=== PATIENT | female | born 1945 | race Caucasian/White ===

== ENCOUNTER 2017-04-02 09:47 | Emergency (ER) | payer OTHER ==
[~2017-04-02] VITALS: Ht 147.3 cm; Wt 79.0 kg
[2017-04-02 09:49] VITALS: BP 157/73; PULSE 80; RESP 20; TEMP 97.4; O2SAT 97
[2017-04-02] MEDS ORDERED: LANTUS2P SQ (10:00)
[2017-04-02] MEDS ORDERED: NOVOLOGP2 SQ (10:00)
--- NOTE | 2017-04-02 10:22 | PD ---
HPI Chief Complaint: Fall Time Seen by Provider: 10:07 Travel History International Travel<30 days: No Contact w/Intl Traveler<30days: No Traveled to known affect area: No History of Present Illness HPI 72-year-old female complains of headache, low back pain, left hip pain left knee pain. Patient fell down stairs yesterday. Patient denies loss of consciousness. Patient states that she has aching headache on the left side the head. Patient denies any visual change. Patient denies any neck pain. Patient states that she has mild aching pain left chest wall area. Patient complains of more sharp pain and low back, left hip area and left knee area. Patient denies any abdominal pain. Patient denies any focal weakness or numbness of extremity. On a scale of 1-10 the pain is an 8. Patient has history of CHF, chronic kidney disease, diabetes, status post left lung resection, status post hysterectomy, status post cholecystectomy. PFSH Past Medical History Cardiovascular Problems: Yes (CHF) Congestive Heart Failure: Yes Diabetes: Yes Patient Takes Glucophage: No Respiratory: Yes (PT STATES SHE HAS ONE LUNG) Renal Failure: Yes (stage 3) ?: Not Past Surgical History Abdominal Surgery: Yes (hernia repair) Cholecystectomy: Yes Hysterectomy: Yes Tonsillectomy: Yes Other Surgery: Yes (left lung removed as child) Social History Alcohol Use: No Tobacco Use: No Substance Use: No Allergies-Medications (Allergen,Severity, Reaction): Coded Allergies: Cipro (Verified Allergy, Severe, 04/02/17) rash Latex (Verified Allergy, Severe, 04/02/17) rash/hives Reported Meds & Prescriptions Reported Meds & Active Scripts Active Reported Lantus Inj (Insulin Glargine) 1,000 Unit/10 Ml Vial 50 Units SQ HS Novolog Inj (Insulin Aspart) 1,000 Unit/10 Ml Vial 0 SQ DIRECTED Sliding Scale as directed. Review of Systems General / Constitutional: No: Fever Eyes: No: Visual changes HENT: Positive: Headaches Cardiovascular: No: Chest Pain or Discomfort Respiratory: No: Shortness of Breath Gastrointestinal: No: Abdominal Pain Genitourinary: No: Dysuria Musculoskeletal: Positive: Pain Skin: No Rash Neurologic: No: Weakness Psychiatric: No: Depression Endocrine: No: Polydipsia Hematologic/Lymphatic: No: Easy Bruising Physical Exam Narrative GENERAL: Well-nourished, well-developed patient. SKIN: Focused skin assessment warm/dry. HEAD: Normocephalic. Mild tenderness on palpation left temporal parietal area of the scalp. EYES: No scleral icterus. No injection or drainage. Pupils 3 mm equal reactive. Neck: Supple. No tenderness on palpation.. CARDIOVASCULAR: Regular rate and rhythm without murmurs, gallops, or rubs. RESPIRATORY: Breath sounds equal bilaterally. No accessory muscle use. GASTROINTESTINAL: Abdomen soft, non-tender, nondistended. MUSCULOSKELETAL: Mild tenderness on palpation left chest wall area. No crepitus no deformity noted. Moderate tenderness posterior aspect left hip area and diffuse tenderness over the left knee joint. Limited range of motion left knee joint secondary to pain. Mild soft tissue swelling noted. Knee joints stable. BACK: Mild to moderate tenderness with palpation lumbar area, without obvious deformity. No CVA tenderness. Neurologic exam normal. Data Data Last Documented VS Vital Signs Date Time Temp Pulse Resp B/P Pulse Ox O2 Delivery O2 Flow Rate FiO2 04/02/17 09:49 97.4 80 20 157/[address] Brain W/O Iv Contrast(Rout) (04/02/17 10:12) Hip, Uni(Ap&Lat) W Ap Pelvis (04/02/17 10:12) Knee, Complete (4vws) (04/02/17 10:12) Chest, Single Ap (04/02/17 10:12) Spine, Lumbar - Ltd (Ap & Lat) (04/02/17 10:12) MDM Medical Decision Making Medical Screen Exam Complete: Yes Emergency Medical Condition: Yes Interpretation(s) Last Impressions Head CT 04/02/17 1012 Signed Impressions: Service Date/Time: Sunday, April 02, 2017 10:58 - CONCLUSION: No acute intracranial abnormality is identified. Richi Webb MD Chest X-Ray 04/02/17 1012 Signed Impressions: Service Date/Time: Sunday, April 02, 2017 10:35 - CONCLUSION: Findings characteristic of prior left pneumonectomy. Otherwise, no acute finding as visualized. Richi Webb MD 11:26 AM. X-ray shows no acute bony injury. Differential Diagnosis Differential diagnosis including closed head injury, intracranial hemorrhage, contusion, fracture, dislocation. Narrative Course 72-year-old female with headache, low back pain, left hip pain and left knee pain. Status post fall downstairs yesterday. Diagnosis Primary Impression: Closed head injury Qualified Code: S09.90XA - Closed head injury, initial encounter Additional Impression: Multiple contusions Patient Instructions: General Instructions Additional Instructions: Head trauma instructions given. Take medications as needed for pain. Follow- up with orthopedist if persistent problem. Med/Other Pt SpecificInfo: Prescription(s) given Scripts Acetaminophen-Codeine (Tylenol-Codeine #3)300-30 mg Tab1 Tab PO Q6HR PRN (PAIN SCALE 1 TO 10) #20 TAB Prov:Matt Villeda MD 04/02/17 Meloxicam (Mobic)15 Mg Tab15 Mg PO DAILY #20 TAB Prov:Matt Villeda MD 04/02/17 Disposition: 01 DISCHARGE HOME Condition: Stable Matt Villeda MD April 02, 2017 10:22
--- NOTE | 2017-04-02 11:09 | RADRPT ---
EXAM DATE/TIME: 04/02/2017 10:58 [facility] COMPARISON: No previous studies available for comparison. INDICATIONS : Trauma, fall down steps. RADIATION DOSE: 63.41 CTDIvol (mGy) MEDICAL HISTORY : Cardiovascular disease. Congestive heart failure. Diabetes mellitus type 2. SURGICAL HISTORY : None. ENCOUNTER: Initial ACUITY: 1 day PAIN SCALE: 3/10 LOCATION: cranial TECHNIQUE: Multiple contiguous axial images were obtained of the head. Using automated exposure control and adj ustment of the mA and/or kV according to patient size, radiation dose was kept as low as reasonably a chievable to obtain optimal diagnostic quality images. FINDINGS: CEREBRUM: There is mild cerebral atrophy. Ventricles are normal in size. No evidence of midline shift, mass le beatris, hemorrhage or acute infarction. No extra-axial fluid collections are seen. POSTERIOR FOSSA: The cerebellum and brainstem demonstrate no acute finding. The 4th ventricle is midline. The cerebe llopontine angle is unremarkable. EXTRACRANIAL: Visualized sinuses are clear. SKULL: The calvaria is intact. No evidence of skull fracture. CONCLUSION: No acute intracranial abnormality is identified. Richi Webb MD on April 02, 2017 at 11:04 Board Certified Radiologist. This report was verified electronically.
--- NOTE | 2017-04-02 11:17 | RADRPT ---
EXAM DATE/TIME: 04/02/2017 10:35 [facility] COMPARISON: No previous studies available for comparison. INDICATIONS : Chest pain due to fall. MEDICAL HISTORY : None. SURGICAL HISTORY : Left lung removed. ENCOUNTER: Initial ACUITY: 1 day PAIN SCORE: 8/10 LOCATION: Bilateral chest FINDINGS: Single AP view of the chest demonstrates a normal-sized cardiac silhouette with leftward shift of the mediastinum into the left hemithorax. There is calcification of the aorta. Clips overlie the left he mithorax and heart. Right lung is hyperexpanded and demonstrates no effusion, consolidation, or pneum othorax. Bones and soft tissues demonstrate no acute finding. Cholecystectomy clips are present. CONCLUSION: Findings characteristic of prior left pneumonectomy. Otherwise, no acute finding as visualized. Richi Webb MD on April 02, 2017 at 11:14 Board Certified Radiologist. This report was verified electronically.
--- NOTE | 2017-04-02 11:18 | RADRPT ---
EXAM DATE/TIME: 04/02/2017 10:37 [facility] COMPARISON: No previous studies available for comparison. INDICATIONS : Low back pain due to fall. MEDICAL HISTORY : None. SURGICAL HISTORY : None. ENCOUNTER: Initial ACUITY: 1 day PAIN SCORE: 8/10 LOCATION: Lumbar spine. FINDINGS: 3 views of the lumbar spine demonstrate no fracture or compression deformity. There is no anterolisth esis or retrolisthesis. Endplate osteophytes are present anteriorly. There is decreased disc height a nd facet hypertrophy at L5-S1. The pelvic bones demonstrate no acute finding. There is atheroscleroti c disease of the aorta. CONCLUSION: No acute lumbar spine abnormality is identified. Degenerative changes are present, as above. Richi Webb MD on April 02, 2017 at 11:15 Board Certified Radiologist. This report was verified electronically.
--- NOTE | 2017-04-02 11:19 | RADRPT ---
EXAM DATE/TIME: 04/02/2017 10:44 [facility] COMPARISON: No previous studies available for comparison. INDICATIONS : Left hip and pelvis pain due to fall. MEDICAL HISTORY : None. SURGICAL HISTORY : None. ENCOUNTER: Initial ACUITY: 1 day PAIN SCORE: 7/10 LOCATION: Left Pelvis and hip. FINDINGS: AP view of the pelvis with 2 views of the left hip joint demonstrate no fracture or dislocation. Mine ralization is within normal limits. Sacroiliac joints and pelvic bones demonstrate no acute finding. No soft tissue abnormality or radiopaque foreign body is identified. CONCLUSION: No acute abnormality is identified. Richi Webb MD on April 02, 2017 at 11:16 Board Certified Radiologist. This report was verified electronically.
--- NOTE | 2017-04-02 11:20 | RADRPT ---
EXAM DATE/TIME: 04/02/2017 10:47 [facility] COMPARISON: No previous studies available for comparison. INDICATIONS : Left knee pain due to fall. MEDICAL HISTORY : None. SURGICAL HISTORY : None. ENCOUNTER: Initial ACUITY: 1 day PAIN SCORE: 8/10 LOCATION: Left Knee FINDINGS: Four views of the left knee demonstrate no fracture or dislocation. No joint effusion is present. The re is no significant arthropathy and mineralization is within normal limits. Patellar osteophytes are present. No soft tissue abnormality or radiopaque foreign body is identified. CONCLUSION: No acute abnormality is identified. Richi Webb MD on April 02, 2017 at 11:17 Board Certified Radiologist. This report was verified electronically.
[2017-04-02] MEDS ORDERED: MOBI15TA PO (11:31)
[2017-04-02] MEDS ORDERED: TYLETAB34 PO (11:31)
== END 2017-04-02 11:54 | disposition home or self-care (01) ==
LOC: NEPD 09:47
DX: S09.90XA Unspecified injury of head, initial encounter (principal); T14.8 Other injury of unspecified body region; M25.562 Pain in left knee; M25.552 Pain in left hip; M54.5 Low back pain; I50.9 Heart failure, unspecified; E11.22 Type 2 diabetes mellitus with diabetic chronic kidney disease; N18.3 Chronic kidney disease, stage 3 (moderate); W10.9XXA Fall (on) (from) unspecified stairs and steps, initial encounter; Z79.4 Long term (current) use of insulin
CPT/HCPCS: 70450; 71010; 72100; 73502; 73564; 99284